=== PATIENT | male | born 1945 | race Caucasian/White ===

== ENCOUNTER → 2017-06-02 | Outpatient (CLI) | payer OTHER | LOC: BMCIMAGING 13:26 | PROVIDERS: ATTEND Podiatrist Foot & Ankle Surgery | DX: M16.12 Unilateral primary osteoarthritis, left hip (principal); M51.36 Other intervertebral disc degeneration, lumbar region ==

== ENCOUNTER → 2017-12-15 | Outpatient (CLI) | payer OTHER | LOC: BMCIMAGING 08:39 | PROVIDERS: ATTEND Orthopaedic Surgery | DX: Z47.1 Aftercare following joint replacement surgery (principal); Z96.652 Presence of left artificial knee joint ==

== ENCOUNTER → 2018-09-23 | Outpatient (CLI) | payer OTHER | LOC: BMCIMAGING 10:40 | PROVIDERS: ATTEND Physician Assistant | DX: Z96.652 Presence of left artificial knee joint (principal) ==

== ENCOUNTER → 2018-10-08 | Outpatient (CLI) | payer OTHER | LOC: FIMAGING 08:53 | PROVIDERS: ATTEND Orthopaedic Surgery | DX: Z01.818 Encounter for other preprocedural examination (principal); M17.12 Unilateral primary osteoarthritis, left knee ==

== ENCOUNTER 2018-10-23 07:57 | Inpatient (IN) | payer OTHER ==
--- NOTE | 2018-10-23 06:14 | PDHPUP ---
History & Physical Update H&P update statement: This history and physical update is based on an assessment of the patient which was completed after admission or registration (within 24 hours), but prior to the surgery/procedure. H&P update: H&P reviewed & patient examined, no change in patient's condition since H&P completed
[~2018-10-23 07:57] MED LIST: TRANEXAMIC ACID 3,000 MG/50 ML BAG IRR ONE
[2018-10-23] MEDS ORDERED: FAMOTIDINE 20 MG TAB PO ONE (08:06)
[2018-10-23] MEDS ORDERED: DEXAMETHASONE 4 MG/ML VIAL IVP ONE (08:06)
[2018-10-23] MEDS ORDERED: ACETAMINOPHEN 325 MG TAB PO ONE (08:06)
[2018-10-23] MEDS ORDERED: ceFAZolin 2 GM/DEXTROSE 100 ML IV ONE (08:06)
[2018-10-23] MEDS ORDERED: LIDOCAINE 1% 2 ML INJ ID PRN (08:07)
[2018-10-23] MEDS ORDERED: LR 1,000 ML IV ONE (08:07)
[2018-10-23] MEDS ORDERED: MIDAZOLAM 2 MG/2 ML VIAL ONE (09:57)
[2018-10-23] MEDS ORDERED: PROPOFOL/EMULSION 500 MG/50 ML BOTTLE IV ONE ×2 (09:59→10:52)
[2018-10-23] MEDS ORDERED: ROPIVACAINE HCL 150 MG/30 ML INJ ONE (10:00)
[2018-10-23] MEDS ORDERED: TRANEXAMIC ACID 3,000 MG in NS (SYRINGE) 50 ML IRR ONE (10:00)
[2018-10-23] MEDS ORDERED: LIDOCAINE 2% 5 ML SDV ONE (10:00)
[2018-10-23] MEDS ORDERED: ROPIVACAINE 0.2% 80 MG, EPINEPHrine 0.2 MG, KETOROLAC TROMETHAMINE 30 MG in SYRINGE 0 ML IU ONE (10:00)
[2018-10-23] MEDS ORDERED: BUPIVACAINE/DEXTROSE 7.5MG/ML 2 ML SPINAL AMP SP ONE (10:01)
[2018-10-23] MEDS ORDERED: VANCOMYCIN 1 GM VIAL ONE (10:02)
[2018-10-23] MEDS ORDERED: fentaNYL 100 MCG/2 ML INJ ONE (10:18)
[2018-10-23] MEDS ORDERED: fentaNYL 100 MCG/2 ML INJ IVP PRN (10:49)
[2018-10-23] MEDS ORDERED: ONDANSETRON 4 MG/2 ML VIAL IVP PRN ×2 (10:49→12:02)
[2018-10-23] MEDS ORDERED: oxyCODONE IR 5 MG TAB PO PRN ×2 (10:49→12:02)
[2018-10-23] MEDS ORDERED: DEXAMETHASONE 4 MG/ML VIAL IVP PRN (10:49)
[2018-10-23] MEDS ORDERED: HYDROmorphONE/DILAUDID 2 MG/ML INJ IVP PRN (10:49)
[2018-10-23] MEDS ORDERED: NALOXONE HCL 0.4 MG/ML INJ IVP PRN (10:49)
[2018-10-23] MEDS ORDERED: MIDAZOLAM 2 MG/2 ML VIAL IVP ONE (10:49)
[2018-10-23] MEDS ORDERED: ACETAMINOPHEN 500 MG TAB PO PRN (10:49)
--- NOTE | 2018-10-23 10:50 | PDANEPAE ---
ANE History of Present Illness L Knee ANE Past Medical History - Cardiovascular History Hx Hypertension: No Hx Arrhythmias: No Hx Chest Pain: No Hx Coronary Artery / Peripheral Vascular Disease: No Hx CHF / Valvular Disease: No Hx Palpitations: No Cardiovascular History Comment: high chol - Pulmonary History Hx COPD: No Hx Asthma/Reactive Airway Disease: No Hx Recent Upper Respiratory Infection: No Hx Oxygen in Use at Home: No Hx Sleep Apnea: No Sleep Apnea Screening Result - Last Documented: Negative - Neurologic History Hx Cerebrovascular Accident: No Hx Seizures: No Hx Dementia: No - Endocrine History Hx Diabetes: No - Renal History Hx Renal Disorders: Yes Renal History Comment: frequency. hx of prostate ca - Liver History Hx Hepatic Disorders: No - Neurological & Psychiatric Hx Hx Neurological and Psychiatric Disorders: No - Cancer History Hx Cancer: Yes Cancer History Comment: prostate ca with radiation seeds - Congenital Disorder History Hx Congenital Disorders: No - GI History Hx Gastrointestinal Disorders: Yes Gastrointestinal History Comment: hx of colonoscopy with polyp removal - Other Health History Other Health History: wears glasses. bilateral hearing aides - Chronic Pain History Chronic Pain: Yes (left knee) - Surgical History Prior Surgeries: right thumb joint replacement 09/2017 with Aayush with cervical block. 06/14/13 left partial knee replacement with Repine. left knee scope 2006. 2002 left cataract surgery. 12/2001 right retina surgery. 08/2001 prostate seed implantation for prostate CA ANE Review of Systems Review of Systems: - Exercise capacity METS (RN): 4 METS ANE Patient History - Allergies Allergies/Adverse Reactions: rofecoxib [From Vioxx] Allergy (Verified 10/23/18 08:28) Hives Sulfa (Sulfonamide Antibiotics) Allergy (Verified 10/12/18 12:04) Hives - Home Medications Home Medications: Atorvastatin Calcium [Lipitor 10 mg (*)] 5 mg PO HS 10/05/18 [Last Taken ] Herbals/Supplements -Info Only 1 ea PO DAILY 10/05/18 [Last Taken 10/22/18] Melatonin [Melatonin 5 mg] 5 mg PO HS 10/05/18 [Last Taken 10/22/18] Aspirin EC [Aspirin EC 81 mg (*)] 81 mg PO DAILY 10/23/18 [Last Taken 10/15/18] - NPO status NPO Since - Liquids (Date): 10/23/18 NPO Since - Liquids (Time): 06:30 NPO Since - Solids (Date): 10/22/18 NPO Since - Solids (Time): 21:30 - Smoking Hx Smoking Status: Never smoked - Family Anes Hx Family Hx Anesthesia Complications: none ANE Labs/Vital Signs - Vital Signs Blood Pressure: 159/84 Heart Rate: 58 Respiratory Rate: 14 O2 Sat (%): 94 Height: 177.8 cm Weight: 88.451 kg ANE Physical Exam - Airway Neck exam: FROM Mallampati Score: Class 2 Mouth exam: normal dental/mouth exam - Pulmonary Pulmonary: clear to auscultation - Cardiovascular Cardiovascular: regular rate and rhythym - ASA Status ASA Status: II ANE Anesthesia Plan Anesthesia Plan: spinal Regional Anesthesia: adductor canal FNB
[2018-10-23] MEDS ORDERED: PROPOFOL 200 MG/20 ML VIAL ONE (11:21)
[2018-10-23] MEDS ORDERED: PROMETHAZINE HCL 25 MG/ML INJ IVP PRN (12:02)
[2018-10-23] MEDS ORDERED: diphenhydrAMINE 25 MG CAP PO PRN (12:02)
[2018-10-23] MEDS ORDERED: TEMAZEPAM 15 MG CAP PO PRN (12:02)
[2018-10-23] MEDS ORDERED: MAGNESIUM HYDROXIDE 30 ML UDCUP PO PRN (12:02)
[2018-10-23] MEDS ORDERED: CYCLOBENZAPRINE 10 MG TAB PO PRN (12:02)
[2018-10-23] MEDS ORDERED: DIPHENOXYLATE/ATROPINE LOMOTIL 1 TAB PO PRN (12:02)
[2018-10-23] MEDS ORDERED: PROMETHAZINE HCL 25 MG SUPPR PR PRN (12:02)
[2018-10-23] MEDS ORDERED: LACTULOSE 20 GM/30 ML UDCUP PO PRN (12:02)
[2018-10-23] MEDS ORDERED: POLYETHYLENE GLYCOL 3350 17 GM PKT PO PRN (12:02)
[2018-10-23] MEDS ORDERED: ONDANSETRON DISINTEGRATING 4 MG TAB PO PRN (12:02)
[2018-10-23] MEDS ORDERED: BISACODYL 10 MG SUPP PR PRN (12:02)
[2018-10-23] MEDS ORDERED: METOCLOPRAMIDE 10 MG/2 ML VIAL IVP PRN (12:02)
--- NOTE | 2018-10-23 12:02 | POSTOPPROG ---
Post Op Note Date of Operation: 10/23/18 Surgeon: Elyse Li Shot Dropper: Ileana Higgins and Heidi Li PA-C Anesthesiologist: Dr. Axel Kimble Anesthesia: Spinal, Other (Specify) (Adductor canal block) Pre-op Diagnosis: left knee OA Post-op Diagnosis: same Indication: left knee pain Procedure: LTKA, robot assisted Findings: removed medial PKA, severe OA of left knee Inf/Abcess present in the surg proc area at time of surgery?: No EBL: 50-100
[2018-10-23] MEDS ORDERED: LR 1,000 ML IV SCH (12:30)
--- NOTE | 2018-10-23 13:22 | POSTANESTH ---
Post Anesthetic Evaluation Cardiovascular Status: Normal, Stable Respiratory Status: Normal, Stable Level of Consciousness/Mental Status: Can Participate in Eval, Alert and Oriented Pain Control: Adequate, Prn Tx Ordered Nausea/Vomiting Control: Adequate, Prn Tx Ordered Complications Possibly Related to Anesthesia: None Noted
[2018-10-23] MEDS ORDERED: ceFAZolin 2 GM/DEXTROSE 100 ML IV SCH (14:00)
--- NOTE | 2018-10-23 14:56 | PDMN ---
Medical Necessity Medical necessity: Pt meets IP criteria per PA; est los >2 mn s/p L TKA (cpt 42173); requiring IP due to revision; per order 10/23/18
--- NOTE | 2018-10-23 16:30 | GOP ---
[f rep st] OPERATIVE REPORT DATE OF OPERATION: 10/23/2018 SURGEON: Jana Li MD AQUATICS INSTRUCTOR: Heidi Li, PAC. ANESTHESIA: Spinal. PREOPERATIVE DIAGNOSIS: Left knee osteoarthritis and failed medial compartment partial knee replacem ent. POSTOPERATIVE DIAGNOSIS: Left knee osteoarthritis and failed medial compartment partial knee replace ment. PROCEDURE PERFORMED: Left total knee arthroplasty with computer navigation, robotic assist. FINDINGS: Pathology: Severe tricompartmental osteoarthritis with medial unicompartmental arthroplas ty. ESTIMATED BLOOD LOSS: 30 cc. INDICATIONS: The patient is a 73-year-old male with severe and progressive pain and deformity of the left knee unresponsive to conservative care. The risks and benefits of surgical intervention were e xplained in detail. DESCRIPTION OF PROCEDURE: The patient was brought to the operative room and placed on the table in t he supine position. Spinal anesthesia was induced without difficulty. A pneumatic tourniquet was appl ied about the left proximal thigh, and the leg was prepped and draped in a sterile fashion. The leg h older was applied. After exsanguination by elevation the tourniquet was inflated to 250 mmHg. Incision was made anterior medial from the tibial tuberosity to a point cm proximal to the superior pole of the patella. Medial parapatellar arthrotomy was carried out from the superior pole of the patella and posteriorly in line with the fibers of the Type II VMO. The medial collateral liga ment was elevated and the infrapatellar fat pad was resected. The patella was everted and the articular surface was excised. A 38 mm patellar button was placed. Attention was turned first to the distal aspect of the femur. After exposure of the femur, 2 half pi ns were placed for fixation of the femoral array. In a similar fashion, 2 pins were placed anteromed ial on the tibia for fixation of the tibial array. External land marking and registration of the hip center was performed without difficulty. Internal femoral and tibial registration was carried out w ithout difficulty and the femoral and tibial checkpoints were placed and verified for accuracy. Attention was turned to the femur. The foot print for the size 7 femoral component was cut with the saw using the [employer] robotic system and verified for accuracy against the CT based plan. In a similar f ashion, the saw was used to cut the footprint for the size 7 tibial component using the REE system an d verified for accuracy against the CT based plan. The tibial articular surface was excised without d ifficulty, followed by the intercondylar box cut. The knee was extended and the remnants of the medial and lateral meniscus were excised. The posterior capsule was injected with ropivacaine, epinephrine and Toradol. A size 7 tibial tray was positioned . Trial reduction was then carried out. There was excellent range of motion, alignment, and stability using the 9 mm polyethylene. All trials were then removed. The joint was thoroughly irrigated and carefully dried. The cemented co mponents were implanted. The permanent 9 mm polyethylene was placed without difficulty. The tourniquet was deflated and all bleeders were coagulated. The wound was thoroughly irrigated and closed using interrupted sutures of 2-0 Vicryl for the joint capsule. The subcu was closed with 3-0 V icryl and the skin with 4-0 Monocryl. Dermabond and Steri-Strips were applied followed by a compress wilbur dressing. The patient was then moved from the operating room to the recovery room in good conditi on, having tolerated the procedure well. Prior unicompartmental arthroplasty was removed. /[id number]/MODL
[2018-10-23] MEDS: ACETAMINOPHEN 325 MG TAB PO SCH (17:35)
[2018-10-23] MEDS: ceFAZolin 2 GM/DEXTROSE 100 ML IV SCH (18:00)
[2018-10-23] MEDS: FAMOTIDINE 20 MG TAB PO SCH (20:17)
[2018-10-23] MEDS: ASPIRIN 81 MG CHEWABLE TAB PO SCH (20:17)
[2018-10-23] MEDS: SENNOSIDES/DOCUSATE SODIUM TAB PO SCH (20:18)
[2018-10-23] MEDS ORDERED: MELATONIN 3 MG TAB PO SCH (21:00)
[2018-10-23] MEDS ORDERED: ATORVASTATIN CALCIUM 10 MG TAB PO SCH (21:00)
[2018-10-24] MEDS: ACETAMINOPHEN 325 MG TAB PO SCH ×3 (00:19→12:17)
[2018-10-24] MEDS: ceFAZolin 2 GM/DEXTROSE 100 ML IV SCH (03:00)
[2018-10-24 08:15] VITALS: BP 139/71
[2018-10-24] MEDS: ASPIRIN 81 MG CHEWABLE TAB PO SCH (08:26)
[2018-10-24] MEDS: FAMOTIDINE 20 MG TAB PO SCH (08:26)
[2018-10-24] MEDS: SENNOSIDES/DOCUSATE SODIUM TAB PO SCH (08:26)
--- NOTE | 2018-10-24 11:41 | SOAPPROG ---
SOAP Progress Note Assessment/Plan: Assessment: Patient is doing well POD 1 s/p LTKA Pain management: pain is well controlled on oral pain meds. VTE ppx: recommend 81 mg aspirin morning and evening for 4 weeks, cont CLAUDIO and SCDs Anemia: level is expected initially postop. Asymptomatic. Continue to monitor D/c planning:patient has done much better than anticipated. Patient is stable, BP stable, pain well controlled and patient is eager for discharge to home. May d/c to home today pending release from PT Plan: 10/24/18 11:40 Subjective: No nausea, vomiting, shortness of breath or chest pain Objective: Vital Signs Temp Pulse Resp BP Pulse Ox 36.7 C 63 16 139/71 H 95 10/24/18 08:00 10/24/18 08:00 10/24/18 08:00 10/24/18 08:00 10/24/18 08:00 Laboratory Results 10/24/18 05:12 10/23/18 10/24/18 10/25/18 05:59 05:59 06:59 Intake Total 1350 Output Total 1480 Balance -130 LLE: incision dressing clean and dry, NVI, positive PF/DF ICD10 Worksheet Patient Problems: Problems Problem Status Onset Osteoarthritis of left knee Acute
--- NOTE | 2018-10-24 15:46 | ASDISCHSUM ---
Discharge Information Plan Status:Home with No Needs Medically Cleared to Leave:10/23/2018 Discharge Date:10/24/2018 12:35 PM CM D/C Disposition:Home, Routine, Self-Care ADT D/C Disposition:Home, Routine, Self-Care Projected Discharge Date:10/24/2018 12:35 PM Transportation at D/C:Family Discharge Delay Reason: Follow-Up Date:10/24/2018 12:35 PM Discharge Slot: Final Diagnosis: Placement Information Patient Contact Information Contact Name:BALBINA Relationship: Address:[address] City:[facility] Phone: [facility]/Zip Code:[place] [address] Email: Financial Information Financial Class:Medicare Primary Plan Desc:MEDICARE INPATIENT Primary Plan Number:[id number] Secondary Plan Desc:[facility] Secondary Plan Number:[id number] Assessment Information LACE LACE Acuity / Level of Answers: Yes Care: Did the patient have an inpatient admission? Comorbidities - select Answers: Any tumor (including all that apply lymphoma or leukemia) # of Emergency department Answers: 0 visits in the last 6 months Score: 5 Date Signed: 10/24/2018 03:44 PM Electronically Signed By:MICHAEL Almaraz Case Management Discharge Plan Note Case Management Discharge Discharge Order Complete? Answers: Yes Patient to Obtain Answers: via Family Medications Transportation Arranged Answers: Family/Friends Discharge Comments Notes: Pt is s/p L TKA. Cleared by PT for outpatient therapy. Pt discharged home today with family and no CM needs. Date Signed: 10/24/2018 03:45 PM Electronically Signed By:MICHAEL Almaraz Intervention Information
--- NOTE | 2018-10-24 15:53 | GDS ---
[f rep st] DISCHARGE SUMMARY SUPERVISING PHYSICIAN: Dr. Allan Li. ADMISSION DIAGNOSIS: Left knee osteoarthritis. DISCHARGE DIAGNOSIS: Left knee osteoarthritis. PROCEDURE: Revision from left partial knee arthroplasty to left total knee arthroplasty, robot vahid colon. VTE PROPHYLAXIS: Recommend aspirin 81 mg twice daily for 4 weeks. BRIEF DESCRIPTION OF HOSPITAL STAY: Patient was admitted for an elective joint arthroplasty. The pa tient tolerated the procedure well and has passed physical therapy. The patient was given appropriat e antibiotic prophylaxis and venous thromboembolism prophylaxis. The patient's pain was well control led on oral pain medication, patient was holding down food, and had urinated. Decision was made to d ischarge the patient. The patient was given post-operative prescriptions pre-operatively. PLAN: Follow up in Dr. Li's office on November 10 at 10:15 a.m. /[id number]/MODL
== END 2018-10-24 12:35 | disposition home or self-care (01) | DRG 467 ==
LOC: F3N 07:57
PROVIDERS: ADMIT Orthopaedic Surgery; ATTEND Orthopaedic Surgery
DX: M17.12 Unilateral primary osteoarthritis, left knee (principal); T84.9XXA Unspecified complication of internal orthopedic prosthetic device, implant and graft, initial encounter; Z96.652 Presence of left artificial knee joint
CPT/HCPCS: 97116-GP; 97161-GP; C1713; J0171; J0690; J1100; J1885; J2250; J2704; J2795; J3010; J3370